=== PATIENT | female | born 2000 | race Caucasian/White ===

== ENCOUNTER 2023-05-08 20:31 | Emergency (ER) | payer MEDICAID, OTHER ==
[~2023-05-08] VITALS: Ht 157.5 cm; Wt 43.5 kg
[2023-05-08 20:49] VITALS: BP 117/63; O2SAT 98
== END 2023-05-08 20:49 | disposition home or self-care (01) ==
LOC: ER 20:34
DX: Z13.9 Encounter for screening, unspecified (principal)
CPT/HCPCS: A4606; A4663

== ENCOUNTER 2023-05-18 20:59 | Emergency (ER) | payer OTHER | END 2023-05-18 21:30 | disposition left against medical advice (07) | LOC: ER 21:04 | DX: R21 Rash and other nonspecific skin eruption (principal); Z53.21 Procedure and treatment not carried out due to patient leaving prior to being seen by health care provider ==

== ENCOUNTER 2023-05-18 22:58 | Emergency (ER) | payer OTHER ==
[~2023-05-18] VITALS: Ht 157.5 cm; Wt 43.6 kg
[2023-05-18 23:19] VITALS: O2SAT 100
== END 2023-05-18 23:20 | disposition home or self-care (01) ==
LOC: ER 23:00
DX: Z13.9 Encounter for screening, unspecified (principal)
CPT/HCPCS: A4606; A4663

== ENCOUNTER 2023-08-20 09:20 | Emergency (ER) | payer OTHER ==
[~2023-08-20] VITALS: Ht 157.5 cm; Wt 44.0 kg
[2023-08-20 11:21] VITALS: BP 131/68; TEMP 98.2; O2SAT 97
== END 2023-08-20 11:22 | disposition home or self-care (01) ==
LOC: ER 09:21
DX: R09.89 Other specified symptoms and signs involving the circulatory and respiratory systems (principal); F84.0 Autistic disorder
CPT/HCPCS: A4606; A4663

== ENCOUNTER 2023-10-23 20:35 | Emergency (ER) | payer OTHER ==
[~2023-10-23] VITALS: Ht 157.5 cm; Wt 44.0 kg
[2023-10-23] MEDS ORDERED: LIDOCAINE HCL 1% 20 ML VIAL ONE (20:56)
[2023-10-23] MEDS ORDERED: CEFTRIAXONE 500 MG VIAL ONE (20:56)
[2023-10-23] MEDS ORDERED: SULF1TAB48 PO (20:59)
[2023-10-23] MEDS: CEFTRIAXONE 500 MG VIAL IM ONE (21:11)
[2023-10-23 21:18] VITALS: BP 130/66; TEMP 97.7; O2SAT 98
== END 2023-10-23 21:15 | disposition home or self-care (01) ==
LOC: ER 20:36
DX: J34.0 Abscess, furuncle and carbuncle of nose (principal); H57.89 Other specified disorders of eye and adnexa; Z79.899 Other long term (current) drug therapy
CPT/HCPCS: 99283; 96372; J0696; J3490; A4606; A4663

== ENCOUNTER 2023-10-25 13:19 | Emergency (ER) | payer OTHER ==
[~2023-10-25] VITALS: Ht 157.5 cm; Wt 43.1 kg
[~2023-10-25 13:19] MED LIST: SULF1TAB48 PO
[2023-10-25 13:23] VITALS: O2SAT 98
[2023-10-25] MEDS ORDERED: MUPI15CR TP (13:58)
[2023-10-25] MEDS ORDERED: CLIN75SO11 PO (13:58)
[2023-10-25] MEDS ORDERED: CLINDAMYCIN PHOSPHATE 600 MG/4 ML VIAL ONE (14:03)
[2023-10-25] MEDS: CLINDAMYCIN PHOSPHATE 600 MG/4 ML VIAL IM ONE (14:16)
== END 2023-10-25 14:26 | disposition home or self-care (01) ==
LOC: ER 13:19
DX: L01.00 Impetigo, unspecified (principal); Z79.899 Other long term (current) drug therapy
CPT/HCPCS: 99283; 96372; J3490; A4606; A4663

== ENCOUNTER 2024-01-22 18:19 | Emergency (ER) | payer OTHER ==
[~2024-01-22] VITALS: Ht 157.5 cm; Wt 43.5 kg
[~2024-01-22 18:19] MED LIST changes: +CLIN75SO11 PO; +MUPI15CR TP
[2024-01-22] MEDS ORDERED: TDAP DIPH,PERTUSS,TET VAC/PF 0.5 ML DISP.SYRIN IM ONE (18:57)
[2024-01-22] MEDS ORDERED: AMOX600S16 PO (19:02)
[2024-01-22] MEDS: TDAP DIPH,PERTUSS,TET VAC/PF 0.5 ML DISP.SYRIN IM ONE (19:04)
[2024-01-22 19:05] VITALS: BP 137/89
[2024-01-22] MEDS: AMOXICILLIN-CLAVU 250 MG/5 ML SUSPENSION 75 ML BOTTLE PO ONE (19:05)
[2024-01-22] MEDS ORDERED: AMOXICILLIN-CLAVU 250 MG/5 ML SUSPENSION 75 ML BOTTLE ONE (19:05)
== END 2024-01-22 19:07 | disposition home or self-care (01) ==
LOC: ER 18:22
DX: S60.511A Abrasion of right hand, initial encounter (principal); F84.0 Autistic disorder; Z79.899 Other long term (current) drug therapy; W25.XXXA Contact with sharp glass, initial encounter; Y93.89 Activity, other specified; Y92.89 Other specified places as the place of occurrence of the external cause; Y99.8 Other external cause status
CPT/HCPCS: 90715; A4606; A4663

== ENCOUNTER 2024-01-28 19:39 | Emergency (ER) | payer OTHER ==
[~2024-01-28] VITALS: Ht 157.5 cm; Wt 43.5 kg
[~2024-01-28 19:39] MED LIST changes: +AMOX600S16 PO
[2024-01-28 19:51] VITALS: BP 155/65; O2SAT 96
== END 2024-01-28 19:55 | disposition home or self-care (01) ==
LOC: ER 19:39
DX: S60.511A Abrasion of right hand, initial encounter (principal); F84.0 Autistic disorder; Z79.899 Other long term (current) drug therapy; W25.XXXA Contact with sharp glass, initial encounter; Y93.89 Activity, other specified; Y92.89 Other specified places as the place of occurrence of the external cause; Y99.8 Other external cause status
CPT/HCPCS: A4606; A4663

== ENCOUNTER 2024-02-03 23:06 | Emergency (ER) | payer OTHER ==
[~2024-02-03] VITALS: Ht 157.5 cm; Wt 43.5 kg
[2024-02-03 23:49] VITALS: BP 120/79; TEMP 98; O2SAT 98
== END 2024-02-03 23:50 | disposition home or self-care (01) ==
LOC: ER 23:06
DX: S61.411D Laceration without foreign body of right hand, subsequent encounter (principal); F84.0 Autistic disorder; Z79.899 Other long term (current) drug therapy; X58.XXXD Exposure to other specified factors, subsequent encounter
CPT/HCPCS: A4606; A4663